=== PATIENT | female | born 1985 | race African-American/Black ===

== ENCOUNTER 2023-07-21 10:24 | Inpatient (IN) | payer OTHER ==
[2023-07-21 10:54] VITALS: BMI 39.3
[2023-07-21] MEDS ORDERED: ONDANSETRON *ODT* 4 MG TABLET SL PRN (11:33)
[2023-07-21] MEDS ORDERED: BISMUTH SUBSALICYLATE 524 MG/30 ML PO PRN (11:33)
[2023-07-21] MEDS ORDERED: MAGNESIUM HYDROX 2400MG/30ML ORAL SUSPENSION 30 ML CUP PO PRN (11:33)
[2023-07-21] MEDS ORDERED: BENZOCAINE/MENTHOL (CHLORASEPTIC ) LOZENGE MM PRN (11:33)
[2023-07-21] MEDS ORDERED: LOPERAMIDE HCL 2 MG CAPSULE PO PRN (11:33)
[2023-07-21] MEDS ORDERED: MAG HYDROX/AL HYDROX/SIMETH 30 ML UNIT-DOSE CUP PO PRN (11:33)
[2023-07-21] MEDS ORDERED: DICYCLOMINE HCL 10 MG CAPSULE PO PRN (11:33)
[2023-07-21] MEDS ORDERED: IBUPROFEN 400 MG TABLET (FP) PO PRN (11:33)
[2023-07-21] MEDS ORDERED: guaiFENesin 600 MG TABLET.ER (FP) PO PRN (11:33)
[2023-07-21] MEDS ORDERED: BENZONATATE 200 MG CAPSULE PO PRN (11:33)
[2023-07-21] MEDS ORDERED: POLYETHYLENE GLYCOL (HEALTHYLAX) 3350 17 GM PACKET PO PRN (11:33)
[2023-07-21] MEDS ORDERED: NALOXONE HCL 0.4 MG/ML VIAL IM PRN (11:33)
[2023-07-21] MEDS ORDERED: NALOXONE HCL (KLOXXADO) 8 MG SPRAY NS PRN (11:33)
[2023-07-21] MEDS ORDERED: ACETAMINOPHEN 325 MG TABLET (FP) PO PRN (11:33)
[2023-07-21] MEDS: IBUPROFEN 600 MG TABLET (FP) PO PRN (11:59)
[2023-07-21] MEDS: PRENATAL VITAMINS W/ FOLIC ACID TABLET (FP) PO SCH (12:00)
[2023-07-21] MEDS: chlordiazePOXIDE HCL 25 MG CAPSULE PO PRN (12:01)
[2023-07-21] MEDS ORDERED: PRENATAL VITAMINS W/ FOLIC ACID TABLET (FP) PO ONE (12:02)
[2023-07-21] MEDS ORDERED: IBUPROFEN 600 MG TABLET (FP) PO ONE (12:02)
[2023-07-21] MEDS ORDERED: chlordiazePOXIDE HCL 25 MG CAPSULE ONE (12:02)
[2023-07-21] MEDS: ALBUTEROL SO4 HFA INHALER IH PRN (13:44)
[2023-07-21] MEDS: chlordiazePOXIDE HCL 25 MG CAPSULE PO SCH (17:29)
[2023-07-21] MEDS: MIRTAZAPINE 15 MG TABLET (FP) PO SCH (22:27)
[2023-07-21] MEDS: THIAMINE HCL 100 MG TABLET (FP) PO SCH (22:27)
[2023-07-21] MEDS: MELATONIN 5 MG TABLETS PO SCH (22:27)
[2023-07-21] MEDS: METHOCARBAMOL 500 MG TABLET PO PRN (22:29)
[2023-07-22] MEDS: NICOTINE 21 MG/24 HOURS TOPICAL PATCH TD SCH (10:18)
[2023-07-22 11:43] LABS: HEMATOCRIT 39.8 % (32.4-45.2); MCH 31.9 pg (25.7-33.7); MCHC 32.7 g/dl (32.0-36.0); MEAN CELL VOLUME 97.6 fl (80-96); MEAN PLT VOLUME 8.2 fl (7.5-11.1); PLATELET COUNT 357 10^3/uL (134-434); RBC 4.08 M/mm3 (3.60-5.2); RDW 13.8 % (11.6-15.6)
[2023-07-22 11:57] LABS: POTASSIUM 4.4 mmol/L (3.5-5.1)
[2023-07-22 12:09] LABS: CALCIUM 9.5 mg/dL (8.5-10.1)
[2023-07-22 12:10] LABS: ALBUMIN 3.8 g/dl (3.4-5.0); BLOOD UREA NITROGEN 15.8 mg/dL (7-18)
[2023-07-22 12:12] LABS: BILIRUBIN,TOTAL 0.3 mg/dL (0.2-1); TOT PROT 7.5 g/dl (6.4-8.2)
[2023-07-22 12:13] LABS: CREATININE 0.7 mg/dL (0.55-1.3)
[2023-07-23] MEDS: chlordiazePOXIDE HCL 25 MG CAPSULE PO SCH (05:17)
[2023-07-23] MEDS: LACTULOSE 20 GM/30 ML UDC (FOR ORAL USE ONLY) PO SCH (17:48)
[2023-07-23] MEDS: hydrOXYzine PAMOATE 25 MG CAPSULE (FP) PO PRN (17:53)
[2023-07-24] MEDS ORDERED: chlordiazePOXIDE HCL 10 MG CAPSULE PO PRN
[2023-07-24] MEDS: chlordiazePOXIDE HCL 10 MG CAPSULE PO SCH (05:14)
[2023-07-24 08:22] VITALS: RESP 16; TEMP 97.6
[2023-07-24 11:24] VITALS: BP 108/96; PULSE 95
[2023-07-24] MEDS ORDERED: MELATONIN 5 MG TABLETS PO SCH (22:00)
[2023-07-25] MEDS ORDERED: chlordiazePOXIDE HCL 10 MG CAPSULE PO SCH (05:00)
[2023-07-26] MEDS ORDERED: chlordiazePOXIDE HCL 10 MG CAPSULE PO ONE (05:00)
== END 2023-07-24 11:56 | disposition home or self-care (01) | DRG 774 ==
LOC: YASAS 10:24 → Y6N 11:40
PROVIDERS: ADMIT Allergy & Immunology; ATTEND Surgery
PROC: HZ2ZZZZ Detoxification Services for Substance Abuse Treatment (ICD-10-PCS; principal; 2023-07-21)
DX: F10.230 Alcohol dependence with withdrawal, uncomplicated (principal); F14.20 Cocaine dependence, uncomplicated; F17.210 Nicotine dependence, cigarettes, uncomplicated; F19.282 Other psychoactive substance dependence with psychoactive substance-induced sleep disorder; F19.24 Other psychoactive substance dependence with psychoactive substance-induced mood disorder; F32.9 Major depressive disorder, single episode, unspecified; F41.9 Anxiety disorder, unspecified; F43.10 Post-traumatic stress disorder, unspecified; J44.9 Chronic obstructive pulmonary disease, unspecified; K21.9 Gastro-esophageal reflux disease without esophagitis; M17.0 Bilateral primary osteoarthritis of knee; Z99.89 Dependence on other enabling machines and devices
CPT/HCPCS: 36415; 80053; 80307; 81025; 82140; 85027; 86780; 93005; 93010